=== PATIENT | female | born 1985 | race Caucasian/White ===

== ENCOUNTER 2018-05-29 18:11 | Inpatient (IN) ==
[2018-05-29] MEDS ORDERED: fentaNYL Citrate Inj 100 MCG/2 ML Ampul IV.PUSH PRN ×3 (20:05→20:14)
[2018-05-29] MEDS ORDERED: Sod Chloride 0.9% Inj 1,000 ML IV.CONT PRN (20:05)
[2018-05-29] MEDS ORDERED: Sodium Chlor 0.9% Inj 500 ML IV.SIG PRN (20:05)
[2018-05-29] MEDS ORDERED: Oxytocin 30 Units/500ml Premix 30 UNITS/500 ML BAG IV.SIG ONE (20:05)
[2018-05-29] MEDS ORDERED: Naloxone Inj 0.4 MG/ML Vial IV.PUSH PRN (20:05)
[2018-05-29] MEDS ORDERED: Citric Acid/Sodium Citrate Liq 30 ML UDC PO SCH (20:15)
[2018-05-29 20:36] LABS: Baso % (Auto) 0.2 % (0.0-2.0); Eos # (Auto) 0.1 th/mm3 (0.0-0.4); Eos % (Auto) 0.6 % (0.0-4.0); Hematocrit 33.6 % (35.0-46.0); Hemoglobin 11.7 gm/dL (11.6-15.3); Lymph # (Auto) 1.3 th/mm3 (1.0-4.8); Mean Corpuscular HGB Conc 34.8 % (32.0-36.0); Mean Corpuscular Hemoglobin 31.8 pg (27.0-34.0); Mean Corpuscular Volume 91.3 fL (80.0-100.0); Mean Platelet Volume 11.4 fL (7.0-11.0); Mono # (Auto) 0.9 th/mm3 (0.0-0.9); Mono % (Auto) 6.9 % (0.0-8.0); Neut # (Auto) 10.8 th/mm3 (1.8-7.7); Neut % (Auto) 82.3 % (16.0-70.0); Platelet Count 162 th/mm3 (150-450); Red Blood Count 3.68 mil/mm3 (4.00-5.30); White Blood Count 13.1 th/mm3 (4.0-11.0)
[2018-05-29 20:58] LABS: Anion Gap 10 meq/L (5-15)
[2018-05-29 21:19] LABS: Alanine Aminotransferase 16 U/L (10-53); Albumin 2.9 g/dL (3.4-5.0); Alkaline Phosphatase 126 U/L (45-117); Aspartate Aminotransferase 16 U/L (15-37); Blood Urea Nitrogen 7 mg/dL (7-18); Calcium 8.7 mg/dL (8.5-10.1); Carbon Dioxide 23.9 meq/L (21.0-32.0); Chloride 106 meq/L (98-107); Glomerular Filtration Rate Greater Than 89 mL/min (>89); Glucose,Random 82 mg/dL (74-106); Sodium 140 meq/L (136-145)
[2018-05-29 21:37] LABS: Potassium 2.8 meq/L (3.5-5.1)
[2018-05-29 21:55] LABS: Bacteria,Urine Occasional /hpf; Bilirubin,Urine Negative (Negative); Clarity,Urine Cloudy (Clear); Color,Urine Yellow (Yellw/Straw); Glucose,Urine (UA) Negative (Negative); Hyaline Casts,Urine 1 /lpf (0-3); Leukocyte Esterase,Urine Moderate (Negative); Mucus,Urine Few /lpf (Occasional); Nitrite,Urine Negative (Negative); Specific Gravity,Urine 1.014 (1.002-1.035); Squamous Epithelial Cell,Urine 13 /hpf (0-5)
[2018-05-29 21:56] LABS: Amphetamine Urine With Conf Neg (Neg); Benzodiazepine Urine With Conf Neg (Neg)
[2018-05-29] MEDS: Potassium Chloride 10 MEQ ER Capsule PO SCH (23:23)
[2018-05-30] MEDS: Potassium Chloride 10 MEQ ER Capsule PO SCH ×3 (04:04→16:27)
--- NOTE | 2018-05-30 04:56 | P.OBGPN ---
S: Doing well, minimal pain, no headache, blurred vision or epigastric pain O: VS: Exam: /-3/posterior, cook cath placed with 75cc in both. FHTs: 140s-150s, moderate variability, accelerations present, mixture variable decelerations and late decelerations, but not recurrent. TOCO: Sporadic, will have runs every 3-5 minutes. A/P 32 yo G1 at 39w1d IOL for GHNT 1. IUP: cat 1-2 tracing - Female, GBS neg - EFW (05/03) = 2577g (56%) 2. IOL: secondary to #3, Cervidil removed overnight because of strip concerns, cervix still un favorable, discussed strip concerns with the patient and her partner this morning, discussed options being vs mechanical dilation with Cook catheter and CAMERA MACHINIST, understands that if continued intolerance and remote from delivery would be recommended. Also understands that cannot gaurantee that if tolerate CAMERA MACHINIST and cook that her fetus will tolerate labor later. Continue to be n.p.o. -Patient desires Cook catheter placement in CAMERA MACHINIST. Placed w/o difficulty, pit at , rec max rate of 10. 3. GHTN: BPs mild range no sn/sx of prec, HELLP labs WNL 4. Asthma: avoid hemabate if PPH 5. GMDA1: BS on CMP WNL 6. Reflex urine ctx: will follow up
[2018-05-30 06:12] LABS: Anion Gap 10 meq/L (5-15); Blood Urea Nitrogen 6 mg/dL (7-18); Calcium 8.2 mg/dL (8.5-10.1); Carbon Dioxide 23.8 meq/L (21.0-32.0); Chloride 108 meq/L (98-107); Glomerular Filtration Rate Greater Than 89 mL/min (>89); Glucose,Random 88 mg/dL (74-106); Potassium 3.2 meq/L (3.5-5.1); Sodium 142 meq/L (136-145)
[2018-05-30] MEDS ORDERED: Oxytocin 30 Units/500ml Premix 30 UNITS/500 ML BAG ONE (07:50)
[2018-05-30] MEDS ORDERED: Oxytocin 30 Units/500ml Premix 30 UNITS/500 ML BAG IV.SIG PRN ×2 (08:13→17:38)
--- NOTE | 2018-05-30 09:13 | P.HPOB ---
History of Present Illness Service: OBSTETRICS Primary Care Physician: NOT REQUIRED Chief Complaint: labor induction 39 wks, gestational diabetes, gestational HTN History of Present Illness: (Late Entry. Pt admitted overnight 05/29/18.) 32 yo G1 with EDC 06/05/18 has been followed during with complications of gestational diabetes, diet controlled, and gestational hypertension, not on medication. Patient has been receiving testing in office which has been reassuring since 32 weeks. Due to complications of reviewed with patient risks, benefits, and alternatives of labor induction, recommendation for 39 week induction, patient consented. At time of admission no leakage of fluid no vaginal bleeding, endorsed good movement and no regular contractions. No headache, blurry vision, or RUQ pain. Mild edema LE bilaterally. Weeks Gestation:: 39 Para: 0 : 1 Total # of Miscarriage(s): 0 Total # of Abortions (Spontaneous & Elective): 0 - Inpatient Certification I certify that the inpatient services were ordered in accordance with Medicare regulations governing the order. This includes certification that hospital inpatient services are reasonable and necessary and in the case of services not specified as inpatient-only under 42 CFR 419.22(n), that they are appropriately provided as inpatient services in accordance to with the 2-midnight benchmark under 43 CFR 412.3(e) Estimated Total Length of Stay (Days): 3 Plans for Post Hospital Care: Home Review of Systems All other systems reviewed negative except as stated in HPI PMFSH - Medical / Surgical Hx Neg / Unobtainable Surgical History: No Previous Surgery - Medical History Medical History: Medical History (Last Updated 05/30/18 @ 09:09 by Julienne Roy MD) Asthma Rubella non-immune status, antepartum - Surgical History Surgical History: Surgical History (Last Updated 05/30/18 @ 09:10 by Julienne Roy MD) No history of previous surgery - Family History Family History: Family History (Last Updated 05/30/18 @ 09:10 by Julienne Roy MD) Other No significant family history - Social History I have reviewed the patient's Social History: Yes - Tobacco History Second Hand Smoke Exposure: No Tobacco Use In Past 30 Days: No Smoking Status: Never smoker - Alcohol History How Often Do You Have a Drink Containing Alcohol: Never - Substance Use History Substance History: No History of Abuse - Travel History History of Recent Travel: No Recent Travel in the [facility] Within the Last 8 Weeks: No Recent Travel Out of the Country Within the Last 8 Weeks: No Medications and Allergies Active Medications: Active Medications Citric Acid/Sodium Citrate (Sodium Citrate/Citric Acid Liq) 30 ml PO HVAC MAINTENANCE TECHNICIAN [facility] Stop: 06/02/18 20:14 Fentanyl Citrate (Fentanyl Inj) 100 mcg IV.PUSH Q1H PRN PRN Reason: PAIN SCALE 6 TO 10 Fentanyl Citrate (Fentanyl Inj) 50 mcg IV.PUSH Q1H PRN PRN Reason: Pain Scale 3 - 5 Lactated Ringer's (Lr 1000 Ml Inj) 1,000 mls @ 125 mls/hr IV.CONT .Q8H [facility] Last Admin: 05/30/18 05:11 Dose: 125 mls/hr Lactated Ringer's (Lr 1000 Ml Inj) 1,000 mls @ 3,000 mls/hr IV.SIG UNSCH PRN PRN Reason: compromise or epidural Sodium Chloride (Ns Inj) 500 mls @ 1,000 mls/hr IV.SIG UNSCH PRN PRN Reason: SEE LABEL COMMENTS Sodium Chloride (Ns Inj) 1,000 mls @ 100 mls/hr IV.CONT .Q10H PRN PRN Reason: SEE LABEL COMMENTS Oxytocin (Pitocin 30 Units/Ns 500 Ml Premix) 30 units in 500 mls @ 1 mls/hr IV.SIG TITRATE PRN; Protocol PRN Reason: For induction of labor Last Admin: 05/30/18 08:19 Dose: 1 milliunit/min, 1 mls/hr Lidocaine HCl (Xylocaine 1% Inj) 0.1 ml I-DERMAL PRN PRN PRN Reason: For IV start Stop: 06/01/18 20:04 Lidocaine HCl (Xylocaine 1% Inj) 10 ml INFILTRATN PRN PRN PRN Reason: For episiotomy repair Stop: 05/31/18 20:04 Mineral Oil (Muri-Lube Oil) 10 ml TOPICAL PRN PRN PRN Reason: PRN perineal massage Naloxone HCl (Narcan Inj) 0.1 mg IV.PUSH Q2M PRN PRN Reason: for opiate reversal Ondansetron HCl (Zofran Inj) 4 mg IV.PUSH Q6H PRN PRN Reason: NAUSEA OR VOMITING Potassium Chloride (Kcl) 30 meq PO Q4H [facility] Stop: 05/30/18 11:01 Last Admin: 05/30/18 06:51 Dose: 30 meq Potassium Chloride (Klor-Con 10) 10 meq PO BID [facility] Vit/Calcium/Iron/Folic Ac (Stuartnatal Plus 3) 1 tab PO DAILY [facility] Zolpidem Tartrate (Ambien) 10 mg PO HS PRN PRN Reason: SLEEP Allergies Allergy/AdvReac Type Severity Reaction Status Date / Time amoxicillin Allergy Severe Hives Verified 05/29/18 19:57 penicillin G Allergy Severe Hives Verified 05/29/18 19:57 Home Medications Medication Instructions Recorded Confirmed Type PNV [id number] fumarate-FA 1 tab PO DAILY 05/29/18 05/29/18 History [] Exam Vital signs: Vital Signs 05/29/18 19:01 05/29/18 20:15 05/30/18 00:16 Temperature Pulse Rate 78 71 60 Respiratory Rate Blood Pressure 152/77 H 126/75 128/64 05/30/18 00:30 05/30/18 01:01 05/30/18 01:29 Temperature 99.1 F Pulse Rate 61 69 Respiratory Rate 18 Blood Pressure 140/85 136/64 05/30/18 02:01 05/30/18 04:02 05/30/18 05:00 Temperature 99.0 F Pulse Rate 64 67 70 Respiratory Rate 19 Blood Pressure 140/64 142/77 H 155/85 H 05/30/18 06:01 05/30/18 06:54 05/30/18 06:55 Temperature 98.9 F Pulse Rate 60 58 L Respiratory Rate 18 18 Blood Pressure 148/85 H 147/77 H 05/30/18 07:01 05/30/18 08:32 Temperature 98.5 F Pulse Rate 51 L 55 L Respiratory Rate 17 Blood Pressure 140/81 122/73 Intake & Output 05/29/18 05/30/18 05/30/18 18:59 06:59 18:59 Intake Total 1000 / 1000 Balance 1000 / 1000 Weight 65.317 kg Intake: IV 1000 / 1000 LR 1000 mL Inj 1,000 ML @ 125 1000 / 1000 mls/hr IV.CONT .Q8H [facility] Rx#: [id number] - Constitutional no acute distress, average body habitus - Routine HEENT Exam Head: Present: normocephalic, atraumatic Eye: Present: EOMI ENT: Present: mucous membranes moist. Absent: sinus tenderness - Routine Neck Exam Present: supple, full ROM - Routine Chest/Breast/Axilla Exam Chest wall: Absent: tenderness, mass - Routine Respiratory Exam Absent: accessory muscle use, decreased breath sounds - Routine Cardiovascular Exam Present: RRR. Absent: bradycardia - Routine Abdominal Exam Present: normoactive bowel sounds. Absent: tenderness - Routine Extremities Exam Absent: cyanosis, clubbing - Routine Skin Exam Present: intact. Absent: cyanosis - Routine Neurological Exam Present: alert, oriented X3 Results - Labs CBC & Chem 7: 05/29/18 20:10 05/30/18 05:08 Labs: Laboratory Results - last 24 hr 05/29/18 05/29/18 05/29/18 18:00 18:00 20:10 WBC 13.1 H RBC 3.68 L Hgb 11.7 Hct 33.6 L MCV 91.3 MCH 31.8 MCHC 34.8 RDW 14.0 Plt Count 162 MPV 11.4 H Neut % (Auto) 82.3 H Lymph % (Auto) 10.0 Logan % (Auto) 6.9 Eos % (Auto) 0.6 Baso % (Auto) 0.2 Neut # (Auto) 10.8 H Lymph # (Auto) 1.3 Logan # (Auto) 0.9 Eos # (Auto) 0.1 Baso # (Auto) 0.0 WBC Differential . Differential Comment Auto diff final Sodium Potassium Chloride Carbon Dioxide Anion Gap BUN Creatinine Estimated GFR Random Glucose Calcium Total Bilirubin AST ALT Alkaline Phosphatase Total Protein Albumin Urine Color Yellow Urine Clarity Cloudy H Urine pH 7.0 Ur Specific [place] 1.014 Urine Protein 30 H Urine Glucose (UA) Negative Urine Ketones Trace H Urine Occult Blood Small H Urine Nitrate Negative Urine Bilirubin Negative Urine Urobilinogen Less than 2 Ur Leukocyte Esterase Moderate H Urine RBC 27 H Urine WBC 10 H Ur Squamous Epith Cells 13 Urine Bacteria Occasional H Hyaline Casts 1 Urine Mucus Few H Micro UA Comment Culture indicated Ur Microscopic Review Not Reportable Urine Culture Comments Culture indicated Urine Opiates Screen Neg Ur Barbiturates Screen Neg Ur Amphetamine Screen Neg U Benzodiazepines Scrn Neg Urine Cocaine Screen Neg U Cannabinoids Screen Neg Blood Type Blood Type Recheck 05/29/18 05/29/18 05/30/18 20:10 20:10 05:08 WBC RBC Hgb Hct MCV MCH MCHC RDW Plt Count MPV Neut % (Auto) Lymph % (Auto) Logan % (Auto) Eos % (Auto) Baso % (Auto) Neut # (Auto) Lymph # (Auto) Logan # (Auto) Eos # (Auto) Baso # (Auto) WBC Differential Differential Comment Sodium 140 142 Potassium 2.8 L* 3.2 L Chloride 106 108 H Carbon Dioxide 23.9 23.8 Anion Gap 10 10 BUN 7 6 L Creatinine 0.53 0.51 Estimated GFR Greater than 89 Greater than 89 Random Glucose 82 88 Calcium 8.7 8.2 L Total Bilirubin 0.3 AST 16 ALT 16 Alkaline Phosphatase 126 H Total Protein 7.0 Albumin 2.9 L Urine Color Urine Clarity Urine pH Ur Specific [place] Urine Protein Urine Glucose (UA) Urine Ketones Urine Occult Blood Urine Nitrate Urine Bilirubin Urine Urobilinogen Ur Leukocyte Esterase Urine RBC Urine WBC Ur Squamous Epith Cells Urine Bacteria Hyaline Casts Urine Mucus Micro UA Comment Ur Microscopic Review Urine Culture Comments Urine Opiates Screen Ur Barbiturates Screen Ur Amphetamine Screen U Benzodiazepines Scrn Urine Cocaine Screen U Cannabinoids Screen Blood Type O Positive Blood Type Recheck Required Group B Strep: Negative Caprini VTE Risk Assessment Caprini VTE Risk Assessment: No/Low Risk (score <= 1) VTE Pharmacological Exception Reason: Epidural catheter Caprini Risk Assessment Model: Point Value = 1 Point Value = 2 Point Value = 3 Point Value = 5 Age 41-60 Minor surgery BMI > 25 kg/m2 Swollen legs Varicose veins or History of unexplained or recurrent spontaneous Oral contraceptives or hormone replacement Sepsis (< 1 month) Serious lung disease, including pneumonia (< 1 month) Abnormal pulmonary function Acute myocardial infarction Congestive heart failure (< 1 month) History of inflammatory bowel disease Medical patient at bed rest Age 61-74 Arthroscopic surgery Major open surgery (> 45 min) Laparoscopic surgery (> 45 min) Malignancy Confined to bed (> 72 hours) Immobilizing plaster cast Central venous access Age >= 75 History of VTE Family history of VTE Factor V Leiden Prothrombin [id number] Lupus anticoagulant Anticardiolipin antibodies Elevated serum homocysteine Heparin-induced thrombocytopenia Other congenital or acquired thrombophilia Stroke (< 1 month) Elective arthroplasty Hip, pelvis, or leg fracture Acute spinal cord injury (< 1 month) Prophylaxis Regimen: Total Risk Factor Score Risk Level Prophylaxis Regimen 0-1 Low Early ambulation 2 Moderate Order ONE of the following: *Sequential Compression Device (SCD) *Heparin 5000 units SQ BID 3-4 Higher Order ONE of the following medications: *Heparin 5000 units SQ TID *Enoxaparin/Lovenox 40 mg SQ daily (WT < 150 kg, CrCl > 30 mL/min) *Enoxaparin/Lovenox 30 mg SQ daily (WT < 150 kg, CrCl > 10-29 mL/min) *Enoxaparin/Lovenox 30 mg SQ BID (WT < 150 kg, CrCl > 30 mL/min) AND/OR *Sequential Compression Device (SCD) 5 or more Highest Order ONE of the following medications: *Heparin 5000 units SQ TID (Preferred with Epidurals) *Enoxaparin/Lovenox 40 mg SQ daily (WT < 150 kg, CrCl > 30 mL/min) *Enoxaparin/Lovenox 30 mg SQ daily (WT < 150 kg, CrCl > 10-29 mL/min) *Enoxaparin/Lovenox 30 mg SQ BID (WT < 150 kg, CrCl > 30 mL/min) AND *Sequential Compression Device (SCD) Assessment and Plan - Diagnosis (1) 39 weeks gestation of Code(s): Z3A.39 - 39 weeks gestation of Status: Acute (2) Gestational diabetes Code(s): O24.419 - Gestational diabetes mellitus in , unspecified control Status: Acute (3) Gestational hypertension Code(s): O13.9 - Gestational [-induced] hypertension without significant proteinuria, unspecified trimester Status: Acute - Plan 32 yo G1 admit at 39 weeks for labor induction due to gestational diabetes and gestational hypertension 1) IOL: plan cervidil overnight then re-evaluate for additional methods as indicated 2) GBS neg 3) status: vertex, female, reactive NST in office last week; EFW <7# dispo: anticipate discharge 2-3d Discharge Plannin-3d (2) Gestational diabetes Qualifiers: Gestational diabetes mellitus control: diet-controlled Trimester: third trimester Qualified Code(s): O24.410 - Gestational diabetes mellitus in , diet controlled (3) Gestational hypertension Qualifiers: Trimester: third trimester Qualified Code(s): O13.3 - Gestational [- induced] hypertension without significant proteinuria, third trimester
[2018-05-30] MEDS ORDERED: Clindamycin 900 mg/NS Premix 900 MG/50 ML PIGGYBACK IV.SIG PRN (10:03)
[2018-05-30] MEDS ORDERED: GENTAMICIN IV.SIG SCH (10:03)
[2018-05-30] MEDS ORDERED: SODIUM CHLOR 0.9% IV.SIG SCH (10:03)
[2018-05-30 10:05] LABS: Protein/Creatinine Ratio,Urine 0.42 (0.00-0.14)
--- NOTE | 2018-05-30 10:08 | P.OBGPN ---
Procedures call from nursing, reviewed patient's strip, positive AUTHOR, patient to be informed by nursing that would recommend . Will discontinue Pitocin, a strip returns to category 1 will proceed with around noon, continues to be category tubal proceed earlier.
[2018-05-30] MEDS ORDERED: Citric Acid/Sodium Citrate Liq 30 ML UDC PO SCH (10:15)
--- NOTE | 2018-05-30 10:44 | P.OP ---
Surgeon: Dell Deal MD Operation and Findings: Preoperative diagnosis: 1. Intrauterine at 39 weeks 1 day 2. Nonreassuring heart tones / positive MANAGER CARDIOLOGY 3. Gestational hypertension 4. Asthma 5. Gestational diabetes A2 Postop diagnosis 1. Same as above status post delivery via Procedure 1. Primary low transverse section Surgeon Dr. Dell Deal [place] Measurer: [facility] labor and delivery scrub staff Findings: 1. Viable female at 1316, Apgars 8 and 9, weight 2870 g 2. Intact placenta 3 vessel cord at 1317 3. Normal uterus, fallopian tubes and ovaries bilaterally Anesthesia: Spinal Specimen: Placenta to disposal Estimated blood loss: 500 cc Fluid replacement: 1 L Urine output: 30 cc clear urine DVT prophylaxis: Sequential compression devices throughout the case Antibiotics: 900 mg IV Clindamycin and gentamicin dosed at 5 mg/kg and cleared by pharmacy preoperatively. Counts: correct x2 Time out done: yes Disposition: Stable to PACU then to Indications: Patient is a 32-year-old G1 who presented as an induction of labor secondary to diagnosis of gestational hypertension, she had a Cervidil placed and late decelerations several hours after placement, it was removed and her cervix was still unfavorable. A Cook catheter was placed and a MANAGER CARDIOLOGY performed. She had a positive MANAGER CARDIOLOGY, given that she was remote from delivery and could not safely proceed with induction the patient was counseled for . Description of procedure: The patient was taken to the operating room and after spinal anesthesia was performed she was positioned and supine position with arms out in a left lateral tilt, the abdomen was prepped and draped in sterile fashion, a Pfannenstiel incision was made and carried down sharply to the fascia which was nicked on either side of the midline, this was extended bilaterally, the fascia was elevated superiorly and inferiorly and the rectus muscles were sharply dissected off the overlying fascia, the peritoneum was entered digitally and retracted laterally. A bladder flap was developed with Metzenbaum scissors at the lower uterine segment, the hysterotomy was made in the lower uterine segment with a scalpel in a curvilinear fashion, it was extended cephalad-caudad manner, I inserted my hand into the hysterotomy and the head was elevated to the hysterotomy and with fundal pressure was delivered. With gentle downward and upward guidance the anterior and posterior shoulder was delivered, followed by the torso and lower extremities with ease, the had spontaneous cry the cord was clamped and cut, the was handed off to nursing staff after delayed cord clamping was allowed. Pitocin was bolused and with uterine massage and cord traction the placenta was delivered, uterus was cleared of clot and debris, the uterus was exteriorized and the hysterotomy was closed with 2 layers, first with 0 locking delayed absorbable braided suture, and a second imbricating layer of the same suture. The abdomen and hysterotomy were irrigated, inspected, and found to be hemostatic. The fascia was closed from left to right with 0 running delayed absorbable suture. The subcutaneous tissue was irrigated, inspected, hemostasis was appreciated. The skin was closed with 3-0 delayed absorbable monofilament suture in a subcuticular fashion and then a dressing was applied and the patient tolerated procedure well was transferred to PACU.
[2018-05-30] MEDS ORDERED: Morphine Sulfate PF Inj 5 MG/10 ML Ampul ONE (12:35)
[2018-05-30] MEDS ORDERED: Acetaminophen 325 MG Tablet PO PRN (12:37)
[2018-05-30] MEDS ORDERED: Simethicone 80 MG Chew Tablet PO PRN (12:37)
[2018-05-30] MEDS ORDERED: Oxytocin 30 Units/500ml Premix 30 UNITS/500 ML BAG IV.SIG ONE (12:37)
[2018-05-30] MEDS ORDERED: Morphine Sulfate Inj 8 MG/ML Vial IV.PUSH PRN (12:37)
[2018-05-30] MEDS ORDERED: Ketorolac Inj 30 MG/ML (IVP) Vial IV.PUSH ONE ×2 (12:37→12:50)
[2018-05-30] MEDS: Prenatal Vit/Ca/Iron/Folic Acid Tablet PO SCH (14:23)
[2018-05-30] MEDS ORDERED: Naloxone Inj 0.4 MG/ML Vial IV.PUSH PRN (16:24)
[2018-05-30] MEDS ORDERED: Potassium Chloride 10 MEQ ER Capsule PO ONE (16:30)
[2018-05-30] MEDS: Ketorolac Inj 30 MG/ML (IVP) Vial IV.PUSH SCH (19:19)
[2018-05-31] MEDS: Ketorolac Inj 30 MG/ML (IVP) Vial IV.PUSH SCH ×3 (01:46→14:29)
[2018-05-31 05:57] LABS: Baso % (Auto) 0.3 % (0.0-2.0); Eos # (Auto) 0.1 th/mm3 (0.0-0.4); Eos % (Auto) 0.4 % (0.0-4.0); Hematocrit 30.5 % (35.0-46.0); Hemoglobin 10.3 gm/dL (11.6-15.3); Lymph # (Auto) 1.1 th/mm3 (1.0-4.8); Lymph % (Auto) 8.2 % (9.0-44.0); Mean Corpuscular HGB Conc 33.8 % (32.0-36.0); Mean Corpuscular Hemoglobin 31.7 pg (27.0-34.0); Mean Corpuscular Volume 93.9 fL (80.0-100.0); Mean Platelet Volume 11.3 fL (7.0-11.0); Mono # (Auto) 1.1 th/mm3 (0.0-0.9); Mono % (Auto) 8.3 % (0.0-8.0); Neut # (Auto) 11.3 th/mm3 (1.8-7.7); Neut % (Auto) 82.8 % (16.0-70.0); Platelet Count 145 th/mm3 (150-450); Red Blood Count 3.25 mil/mm3 (4.00-5.30); Red Cell Distribution Width 14.5 % (11.6-17.2); White Blood Count 13.7 th/mm3 (4.0-11.0)
[2018-05-31 06:16] LABS: Anion Gap 9 meq/L (5-15); Blood Urea Nitrogen 11 mg/dL (7-18); Calcium 7.8 mg/dL (8.5-10.1); Carbon Dioxide 23.6 meq/L (21.0-32.0); Chloride 108 meq/L (98-107); Glomerular Filtration Rate Greater Than 89 mL/min (>89); Glucose,Random 84 mg/dL (74-106); Potassium 3.6 meq/L (3.5-5.1); Sodium 141 meq/L (136-145)
[2018-05-31] MEDS: Prenatal Vit/Ca/Iron/Folic Acid Tablet PO SCH (08:38)
--- NOTE | 2018-05-31 09:06 | P.PNOB ---
Subjective Post op day: 1 Interval history: Doing well pain managed lochia not excessive holding daughter nursing Objective Vital Signs/I&O: Vital Signs 05/30/18 09:15 05/30/18 09:25 05/30/18 11:00 Temperature Pulse Rate 58 L 54 L 53 L Respiratory Rate 19 18 Blood Pressure 115/68 134/61 158/84 H 05/30/18 14:00 05/30/18 14:15 05/30/18 14:30 Temperature 98.2 F Pulse Rate 60 55 L Respiratory Rate 16 17 16 Blood Pressure 108/71 140/65 05/30/18 14:35 05/30/18 15:00 05/30/18 16:00 Temperature 97.8 F Pulse Rate 50 L 52 L 57 L Respiratory Rate 18 16 21 Blood Pressure 125/69 146/77 H 146/82 H 05/30/18 20:00 05/31/18 00:00 05/31/18 04:00 Temperature 98.3 F 98.3 F 98.0 F Pulse Rate 64 67 18 L Respiratory Rate 18 18 9 L Blood Pressure 151/84 H 133/74 99/69 L 05/31/18 08:00 Temperature 98.3 F Pulse Rate 63 Respiratory Rate 18 Blood Pressure 131/87 Intake & Output 05/30/18 05/31/18 05/31/18 18:59 06:59 18:59 Intake Total 1000 / 1000 Balance 1000 / 1000 Intake: IV 1000 / 1000 LR 1000 mL Inj 1,000 ML @ 100 1000 / 1000 mls/hr IV.CONT .Q10H [facility] Rx#: [id number] Result Diagrams: 05/31/18 05:18 05/31/18 05:18 Objective Remarks: GENERAL: Well-nourished, well-developed patient. CARDIOVASCULAR: Regular rate and rhythm without murmurs, gallops, or rubs. RESPIRATORY: Breath sounds equal bilaterally. No accessory muscle use. ABDOMEN/GI: Abdomen soft, non-tender, bowel sounds present. Incision: Clean, dry and intact. Fundus: Firm, non-tender at umbilicus. GENITOURINARY: Light to moderate bleeding. EXTREMITIES: No cyanosis or edema, non-tender, without signs of DVT. Medications and IVs: Active Medications Acetaminophen (Tylenol) 650 mg PO Q6H PRN PRN Reason: PAIN SCALE 1 TO 2 Diphenhydramine HCl (Benadryl) 50 mg PO Q6H PRN PRN Reason: MILD TO MODERATE ITCHING Stop: 05/31/18 16:23 Diphenhydramine HCl (Benadryl Inj) 25 mg IV.PUSH Q6H PRN PRN Reason: MILD TO MODERATE ITCHING Stop: 05/31/18 16:23 Diphtheria/Pertussis/Tetanus Vacc (Boostrix Vaccine Inj) 0.5 ml IM .ONCE ONE Stop: 05/31/18 16:01 Lactated Ringer's (Lr 1000 Ml Inj) 1,000 mls @ 100 mls/hr IV.CONT .Q10H [facility] Stop: 05/31/18 13:37 Last Infusion: 05/31/18 06:30 Dose: Infused Oxytocin (Pitocin 30 Units/Ns 500 Ml Premix) 30 units in 500 mls @ 100 mls/hr IV.SIG UNSCH PRN PRN Reason: Heavy bleeding Ibuprofen (Motrin) 800 mg PO Q8H PRN PRN Reason: cramping Ketorolac Tromethamine (Toradol Inj) 15 mg IV.PUSH Q6H [facility] Stop: 05/31/18 18:59 Last Admin: 05/31/18 08:37 Dose: 15 mg Measles/Mumps/Rubella Vaccine Live (M-M-R Ii Vaccine Inj) 0.5 ml SQ .ONCE ONE Stop: 05/31/18 16:01 Miscellaneous Information ([facility]) 1 each OTHER UNSCH PRN PRN Reason: SEE LABEL COMMENTS Stop: 05/31/18 16:23 Miscellaneous Information ([facility]) 1 each OTHER UNSCH PRN PRN Reason: SEE LABEL COMMENTS Stop: 05/31/18 16:23 Morphine Sulfate (Morphine Inj) 5 mg IV.PUSH Q4H PRN PRN Reason: BREAKTHROUGH PAIN Naloxone HCl (Narcan Inj) 0.4 mg IV.PUSH UNSCH PRN PRN Reason: SEE LABEL COMMENTS Stop: 05/31/18 16:23 Ondansetron HCl (Zofran Inj) 4 mg IV.PUSH Q6H PRN PRN Reason: NAUSEA OR VOMITING Oxycodone/Acetaminophen (Percocet 5/325 Mg) 1 tab PO Q4H PRN PRN Reason: PAIN SCALE 3 TO 5 Oxycodone/Acetaminophen (Percocet 5/325 Mg) 2 tab PO Q4H PRN PRN Reason: PAIN SCALE 6 TO 10 Vit/Calcium/Iron/Folic Ac (Stuartnatal Plus 3) 1 tab PO DAILY [facility] Last Admin: 05/31/18 08:38 Dose: 1 tab Simethicone (Mylicon Chew) 80 mg PO QID PRN PRN Reason: FLATULENCE Sodium Chloride (Ns Flush) 2 ml IV.FLUSH BID [facility] Last Admin: 05/31/18 08:38 Dose: 2 ml Sodium Chloride (Ns Flush) 2 ml IV.FLUSH PRN PRN PRN Reason: FLUSH AFTER USING IV ACCESS Zolpidem Tartrate (Ambien) 10 mg PO HS PRN PRN Reason: SLEEP Assessment and Plan - Plan 32 yo G1 admit at 39 weeks for labor induction due to gestational diabetes and gestational hypertension 1) IOL: plan cervidil overnight then re-evaluate for additional methods as indicated 2) GBS neg 3) status: vertex, female, reactive NST in office last week; EFW <7# dispo: anticipate discharge 2-3d POD 1 Normotensive after 24 hours post section. No more nausea and doing well anticipate routine Post operative course. Discharge Plannin-3d
[2018-05-31] MEDS ORDERED: Diphtheria/Tetanus/Pertussis Vaccine Inj 0.5 ML Syringe IM ONE (16:00)
[2018-05-31] MEDS ORDERED: Measles/Mumps/Rubella Vaccine Inj 0.5 ML Vial SQ ONE (16:00)
[2018-06-01 08:22] VITALS: BP 141/81; PULSE 73; RESP 20; TEMP 98.5
[2018-06-01] MEDS: Prenatal Vit/Ca/Iron/Folic Acid Tablet PO SCH (08:52)
--- NOTE | 2018-06-01 10:35 | P.PNOB ---
Subjective Post op day: 2 Interval history: Doing very well except difficulty with latching working with Anayeli pain control adequate bleeding minimal Objective Vital Signs/I&O: Vital Signs 05/31/18 11:55 05/31/18 19:54 06/01/18 08:00 Temperature 98.1 F 98.4 F 98.5 F Pulse Rate 71 80 73 Respiratory Rate 18 18 20 Blood Pressure 123/79 141/82 H 141/81 H Result Diagrams: 05/31/18 05:18 05/31/18 05:18 Objective Remarks: GENERAL: Well-nourished, well-developed patient. CARDIOVASCULAR: Regular rate and rhythm without murmurs, gallops, or rubs. RESPIRATORY: Breath sounds equal bilaterally. No accessory muscle use. ABDOMEN/GI: Abdomen soft, non-tender, bowel sounds present. Incision: Clean, dry and intact. Fundus: Firm, non-tender at umbilicus. GENITOURINARY: Light to moderate bleeding. EXTREMITIES: No cyanosis or edema, non-tender, without signs of DVT. Medications and IVs: Active Medications Acetaminophen (Tylenol) 650 mg PO Q6H PRN PRN Reason: PAIN SCALE 1 TO 2 Oxytocin (Pitocin 30 Units/Ns 500 Ml Premix) 30 units in 500 mls @ 100 mls/hr IV.SIG UNSCH PRN PRN Reason: Heavy bleeding Ibuprofen (Motrin) 800 mg PO Q8H PRN PRN Reason: cramping Last Admin: 05/31/18 22:34 Dose: 800 mg Morphine Sulfate (Morphine Inj) 5 mg IV.PUSH Q4H PRN PRN Reason: BREAKTHROUGH PAIN Ondansetron HCl (Zofran Inj) 4 mg IV.PUSH Q6H PRN PRN Reason: NAUSEA OR VOMITING Oxycodone/Acetaminophen (Percocet 5/325 Mg) 1 tab PO Q4H PRN PRN Reason: PAIN SCALE 3 TO 5 Last Admin: 06/01/18 05:52 Dose: 1 tab Oxycodone/Acetaminophen (Percocet 5/325 Mg) 2 tab PO Q4H PRN PRN Reason: PAIN SCALE 6 TO 10 Vit/Calcium/Iron/Folic Ac (Stuartnatal Plus 3) 1 tab PO DAILY [facility] Last Admin: 06/01/18 08:52 Dose: 1 tab Simethicone (Mylicon Chew) 80 mg PO QID PRN PRN Reason: FLATULENCE Sodium Chloride (Ns Flush) 2 ml IV.FLUSH BID [facility] Last Admin: 06/01/18 08:43 Dose: 2 ml Sodium Chloride (Ns Flush) 2 ml IV.FLUSH PRN PRN PRN Reason: FLUSH AFTER USING IV ACCESS Zolpidem Tartrate (Ambien) 10 mg PO HS PRN PRN Reason: SLEEP Assessment and Plan - Plan 32 yo G1 admit at 39 weeks for labor induction due to gestational diabetes and gestational hypertension 1) IOL: plan cervidil overnight then re-evaluate for additional methods as indicated 2) GBS neg 3) status: vertex, female, reactive NST in office last week; EFW <7# dispo: anticipate discharge 2-3d POD 1 Normotensive after 24 hours post section. No more nausea and doing well anticipate routine Post operative course. POD 2 ready for discharge baby cleared counseled on watching for symptoms of elevated BP, excessive bleeding, DVT or depression RTO 1 week with Toyin or Manuela Discharge Plannin-3d
== END 2018-06-01 13:54 | disposition home or self-care (01) ==
LOC: H2E 18:11 → H1EA 05-30 15:44
PROVIDERS: ADMIT Obstetrics & Gynecology; ATTEND Obstetrics & Gynecology